=== PATIENT | male | born 1960 | race Caucasian/White ===

== ENCOUNTER 2021-01-06 08:25 | Emergency (ER) | payer OTHER, MEDICAID, SELFPAY ==
[2021-01-06 08:45] VITALS: BP 130/67; PULSE 77; RESP 18; TEMP 36.3; O2SAT 99; BMI 32.5
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
[2021-01-06] MEDS: Baclofen 10 MG TABLET PO (08:57)
[2021-01-06] MEDS: Ibuprofen 600 MG TABLET PO (08:57)
== END 2021-01-06 09:01 | disposition home or self-care (01) ==
LOC: HO.ED 08:54
PROVIDERS: Emergency Provider Emergency Medicine
DX: Z04.1 Encounter for examination and observation following transport accident (principal); M79.18 Myalgia, other site; M54.5 Low back pain
CPT/HCPCS: 99283

== ENCOUNTER 2021-09-30 16:27 | Emergency (ER) | payer MEDICAID, SELFPAY ==
--- NOTE | ~2021-09-30 | XR_ITS ---
EXAMINATION: XR CHEST CLINICAL INFORMATION: Lung COMPARISON: None TECHNIQUE: 2 views of the chest were obtained. FINDINGS: No significant abnormality is noted involving the heart, lungs, mediastinum, bony thorax or soft tissues. The aorta is mildly unfolded and ectatic. XR/XR chest 2V IMPRESSION: No acute intrathoracic disease.
[2021-09-30 17:32] VITALS: BP 115/78; PULSE 69; RESP 20; TEMP 37.1; O2SAT 97; BMI 32.1
--- NOTE | 2021-09-30 18:00 | PC.NURSE ---
PT AMB TO [facility] WITH [facility]. GAIT. NO SOB. LUNGS CLEAR. SKIN PWD. C/O LEFT POSTERIOR RIB AREA PAIN WITH MOVEMENT.
--- NOTE | 2021-09-30 18:03 | ED.GENADULT ---
HPI - General Adult General Chief complaint: General Medical Stated complaint: ?Lung pain Time Seen by Provider: 09/30/21 18:03 History of Present Illness HPI narrative: Patient complains of left-sided mid back pain for 2 months worse with movement, it does not hurt to take a deep breath there is no shortness of breath there is no chest pain there is no sputum no fever Pain occurs when he goes into an uncomfortable position but there is no pain at rest Related Data Previous Rx's Medication Instructions Recorded baclofen 10 mg tablet 10 mg PO TID #14 tab 01/06/21 ibuprofen 600 mg tablet 600 mg PO TID PRN #14 tab 01/06/21 cyclobenzaprine 5 mg tablet 5 mg PO TID PRN #14 tab 09/30/21 ibuprofen 800 mg tablet 800 mg PO TID PRN #20 tab 09/30/21 lidocaine 5 % topical patch 1 patch TOPICAL DAILY #15 ea 09/30/21 Allergies Allergy/AdvReac Type Severity Reaction Status Date / Time No Known Allergies Allergy Verified 09/30/21 18:38 [No Known Allergies*] Review of Systems Review of Systems: Positive for left-sided mid back pain Negatives are no fever no chills no dizziness no weakness no headache no neck pain no chest pain no shortness of breath no abdominal pain no nausea or vomiting no changes to bowel or bladder no dysuria no constipation no frequency no leg swelling no lower leg pain no skin rash Yes all other systems are reviewed and are negative [facility] Past Medical History Source: nursing notes reviewed Medical History Hypothyroid Social History Social History Advance Directives: No Advance Directives Information Provided: No Physical Exam Vital Signs: Vital Signs: Last Vital Signs Temp 98.7 F 09/30/21 17:32 Pulse 69 09/30/21 17:32 Resp 20 09/30/21 17:32 BP 115/78 09/30/21 17:32 Pulse Ox 97 09/30/21 17:32 BMI result Body Mass Index 32.1 General appearance is no acute distress Head is normocephalic atraumatic Neck is supple nontender Chest is clear to auscultation bilateral Heart no murmur Abdomen soft nontender The back head easily reproducible left mid back tenderness, there was no pleuritic pain when he took a deep breath and there was tenderness over the left mid back although the skin was normal without rash, no bony tenderness, no CVA tenderness Extremities full range of motion x4 Neuro no focal motor or sensory deficit Course Course Course Narrative: Patient's left mid back pain is reproduced with movement and likely musculoskeletal, there was no component of shortness of breath chest pain difficulty breathing no pleuritic pain Chest x-ray did not reveal any acute pathology and patient is advised to get a primary care doctor and follow with his doctor for possible physical therapy and further evaluation and he is advised he could return here any time if worse Discharge Plan Discharge Clinical Impression: Back pain Patient Disposition: Home, Self-Care Additional Instructions: Best plan is to get a primary care doctor so you can be referred for physical therapy and possible specialist referral Return any time any worse condition or any concerns your chest x-ray did not show any significant findings but you told me you it had a CT scan and [facility] where something was seen so again get a primary doctor and if you need to have repeat lung imaging they will decide that Prescriptions: New ibuprofen 800 mg tablet 800 mg PO TID PRN (Reason: pain) Qty: 20 RF: 0 lidocaine 5 % adhesive patch,medicated 1 patch topical DAILY Qty: 15 RF: 0 cyclobenzaprine 5 mg tablet 5 mg PO TID PRN (Reason: muscle spasm) Qty: 14 RF: 0 No Action baclofen 10 mg tablet 10 mg PO TID Qty: 14 RF: 0 ibuprofen 600 mg tablet 600 mg PO TID PRN (Reason: pain) Qty: 14 RF: 0 Interventions: ED Discharge Assessment Last Done: 09/30/21 18:42 Discharge Date/Time: 09/30/21 18:43
== END 2021-09-30 18:43 | disposition home or self-care (01) ==
PROVIDERS: Emergency Provider Emergency Medicine Emergency Medical Services
DX: M54.9 Dorsalgia, unspecified (principal)
CPT/HCPCS: 71046; 99283

== ENCOUNTER 2022-11-29 09:42 | Emergency (ER) | payer MEDICAID, SELFPAY ==
[2022-11-29 09:48] VITALS: BP 127/75; PULSE 74; RESP 20; TEMP 36.7; O2SAT 98; BMI 31.3
[2022-11-29 09:59] LABS: MANUAL DIFF FLAG NO
--- NOTE | 2022-11-29 10:04 | ED.GENADULT ---
HPI - General Adult General Chief complaint: General Medical Stated complaint: no medication for a year Time Seen by Provider: 11/29/22 09:45 Source: patient Mode of arrival: ambulatory Limitations: no limitations History of Present Illness HPI narrative: 62 yo male with history of opioid use disorder on Suboxone, hypothyroidism non-compliant with levothyroxine for the last 1 year presents to the ER for levothyroxine refill. He states he has felt unwell lately including extreme fatigue and tiredness. He feels like his joints are swollen in his hands. He does not have a PCP and has been off of his med for 1 year. He has been compliant with his Suboxone. At the clinic they did labs on him about 3 weeks ago and told him he had mild anemia. He denies any chest pain, SOB, dizziness. Denies confusion, hypothermia. complaint: fatigue, med noncompliant Onset (ago): month(s) Radiation: non-radiation Severity: moderate Relieving factors: none Exacerbating factors: none Associated symptoms: malaise Treatments prior to arrival: none Related Data Home Medications Medication Instructions Recorded Confirmed buprenorphine 12 mg-naloxone 3 mg 1 strip sublingual DAILY 11/29/22 11/29/22 sublingual film (Suboxone) Previous Rx's Medication Instructions Recorded levothyroxine 150 mcg tablet 150 mcg PO DAILY #90 tabs 11/29/22 (Synthroid) Allergies Allergy/AdvReac Type Severity Reaction Status Date / Time No Known Allergies Allergy Verified 09/30/21 18:38 [No Known Allergies*] Review of Systems Review of Systems: Yes all other systems are reviewed and are negative [facility] Past Medical History Medical History Hypothyroid Social History Social History Advance Directives: No Advance Directives Information Provided: No Physical Exam ED Vital Signs: Vital Signs - 24 hr 11/29/22 09:48 Temperature 98.0 F Pulse Rate 74 Respiratory Rate 20 Blood Pressure 127/75 Pulse Oximetry 98 Oxygen Delivery Method Room Air BMI result Body Mass Index 31.3 Appearance: Alert. Oriented X3. No acute distress, mild pallor. Eyes: Pupils equal, round and reactive to light. ENT: Pharynx normal. Neck: Normal inspection. Neck supple. CVS: Normal heart rate and rhythm. Pulses normal. Respiratory: No respiratory distress. Breath sounds normal. Abdomen: Soft and nontender. +BS x4 Skin: Skin warm and dry. Normal skin color. Normal skin turgor. No rashes. Extremities: No lower extremity edema. Bilateral hands with mild generalized swelling with swelling of the MCPs throughout. No open wounds. Dry skin Neuro: Oriented X 3. No motor deficit. No sensory deficit. Steady gait Course Course Course Narrative: 62 yo male with history of opioid use disorder on Suboxone, hypothyroidism noncompliant with synthroid x1 year presenting with fatigue. He states he has been nodding out at work. He is normal thermic with a normal heart rate. awake and alert. Nontoxic appearing. Will send basic labs including a TSH with reflex to T4. He is not appear to be in myxedema coma at this time. Reevaluation(s) Reevaluation #1: TSH is 58. Otherwise labs are unremarkable. He remains hemodynamically stable, normothermic and mentating normally. Case d/w Dr. Ro - plan to reinitate him on his previously prescribed Levothyroxine 100 mcg per day. Patient was counseled on the importance of medication compliance and outpatient follow-up. Will refer to endocrinology and PCP. Will give a 3 month supply to give him adequate time to set up outpatient follow-up. Patient is stable for discharge home and return precautions were discussed. Medical Decision Making Differential Diagnosis Differential Diagnoses: The differential diagnosis associated with the presentation includes Myxedema coma, hypothyroidism, anemia, medication noncompliance Admission/Observation Consideration of admission/observation: Escalation of care including admission/observation considered admission for IV Synthroid considered however patient is nontoxic, hemodynamically stable and can be initiated on oral therapy at this time. Lab Data MDM Lab Attestation statement: I reviewed the patient's lab results. 11/29/22 09:56 11/29/22 09:56 Labs: Lab Results 11/29/22 11/29/22 Range/Units 09:56 09:56 WBC 7.0 (4.8-10.8) X10*3/uL RBC 3.94 L (4.60-5.80) X10*6/uL Hgb 12.0 L (14.0-18.0) g/dl Hct 35.3 L (42.0-52.0) % MCV 89.6 (80.0-98.0) fL MCH 30.5 (27.0-33.0) pg MCHC 34.0 (31.0-36.0) g/dl RDW 13.2 (11.0-16.0) % Plt Count 221 (160-400) X10*3/uL MPV 9.2 L (9.4-12.4) fL Immature Gran % (Auto) 0.7 H (0.0-0.4) % Neut % (Auto) 38.2 L (45-73) % Lymph % (Auto) 48.3 H (20-40) % Cross % (Auto) 8.2 (2-11) % Eos % (Auto) 4.0 (0-4) % Baso % (Auto) 0.6 (0-2) % Lymph # (Auto) 3.4 (1.2-4.9) X10*3/uL Cross # (Auto) 0.6 (0.1-1.2) X10*3/uL Eos # (Auto) 0.3 (0.0-0.4) X10*3/uL Baso # (Auto) 0.0 (0.0-0.2) X10*3/uL Abs Immat Gran (auto) 0.05 H (0.00-0.03) X10*3/uL Absolute Neuts (auto) 2.7 (2.0-8.3) x10*3/uL Absolute Nucleated RBC 0.000 (0.0-0.012) X10*3/uL Nucleated RBC % (auto) 0.0 (0.0-0.2) /100WBC Sodium 139 (135-145) mmol/L Potassium 4.3 (3.3-5.1) mmol/L Chloride 103 (96-108) mmol/L Carbon Dioxide 29 (22-29) mmol/L Anion Gap 11 L (12-20) BUN 16 (9-16) mg/dL Creatinine 1.15 (0.5-1.4) mg/dL Estim Creat Clear Calc 52.6 Estimated GFR > 60 Random Glucose 118 H (60-115) mg/dL Calcium 9.7 (8.4-10.2) mg/dL Magnesium 2.2 (1.6-2.6) mg/dL Total Bilirubin 0.7 (0.0-1.0) mg/dL Direct Bilirubin < 0.2 (0.0-0.5) mg/dL AST 38 H (5-37) U/L ALT 21 (0-40) U/L Alkaline Phosphatase 69 (39-117) U/L Total Protein 7.3 (6.5-8.0) g/dL Albumin 4.5 (3.5-5.0) g/dL TSH 58.43 H (0.32-4.0) uIU/mL Prescription Management I considered prescription management with: Other ( Levothyroxine) Chronic Conditions Patient?s care impacted by: Other ( hypothyroidism and opioid use disorder) Critical Care Time Critical Care Time Critical Care Time: No Discharge Plan Discharge Clinical Impression: Hypothyroidism Patient Disposition: Home, Self-Care Instructions: Hypothyroidism (ED) Additional Instructions: Take the prescribed thyroid medication each morning. Take on empty stomach, do not eat for 2 hours after taking. Follow-up with endocrinology and PCP as soon as possible. You will need your thyroid levels rechecked within 4-6 weeks. If you develop new or worsening symptoms call 911 or come back to the ER for further evaluation. Prescriptions: New levothyroxine [Synthroid] 150 mcg tablet 150 mcg PO DAILY Qty: 90 0RF No Action buprenorphine-naloxone [Suboxone] 12-3 mg film 1 strip sublingual DAILY Referrals: [facility] [Provider Group]
[2022-11-29 10:07] LABS: Basophils Percent Auto 0.6 % (0-2); Eosinophils Absolute Auto 0.3 X10*3/uL (0.0-0.4); Hematocrit 35.3 % (42.0-52.0); Imm Gran Abs Auto 0.05 X10*3/uL (0.00-0.03); Imm Gran Pct Auto 0.7 % (0.0-0.4); Lymphocytes Absolute Auto 3.4 X10*3/uL (1.2-4.9); Lymphocytes Percent Auto 48.3 % (20-40); Mean Corpuscular Hemoglobin 30.5 pg (27.0-33.0); Mean Corpuscular Volume 89.6 fL (80.0-98.0); Mean Platelet Volume 9.2 fL (9.4-12.4); Monocytes Absolute Auto 0.6 X10*3/uL (0.1-1.2); Monocytes Percent Auto 8.2 % (2-11); Neutrophils Absolute Auto 2.7 x10*3/uL (2.0-8.3); Neutrophils Percent Auto 38.2 % (45-73); Platelet Count 221 X10*3/uL (160-400); Red Blood Count 3.94 X10*6/uL (4.60-5.80); Red Cell Distribution Width 13.2 % (11.0-16.0)
--- OUTSIDE RECORDS SUMMARY | 2022-11-29 10:10 | XMS_ITS | Continuity of Care Document ---
:1960 Author Organization [facility] Address [address] [place] [id number]- Care Team Providers Name Role Phone Not on Staff, PCP Primary Care Physician Unavailable Encounter [facility] Date(s): 10/01/20 - 10/01/[address] [id number] Discharge Disposition: A-D/C Walkout Attending Physician: Not on Staff, Attending MD Admitting Physician: Not on Staff, Admitting MD Referring Physician: Not on Staff, Referring MD Allergies, Adverse Reactions, Alerts Substance Reaction Severity Status NKA Active Immunizations Given and Recorded Vaccine Date Status Refusal Reason tetanus/diphtheria/pertussis, acel(Tdap) 12/01/18 Given Medications ibuprofen 800 mg oral tablet 800 mg, 1, tablet, By Mouth, 3 times a day, # 15 tablet, Refills 0, Tot. Refills 0, Maintenance, 05/30/17 14:36:12, Print Requisition Start Date: 05/30/17 Stop Date: 06/04/17 Status: Orderedlevothyroxine 0.125 mg oral tablet = 0.125 mcg, By Mouth, Daily, # 30 tablet, 1 Refills, Maintenance, 03/16/16 9:35:37 Start Date: 03/16/16 Status: Orderedlevothyroxine 125 mcg (0.125 mg) oral capsule 1 capsule = 125 mcg, By Mouth, Daily, Take on an empty stomach, # 30 capsule, 0 Refills, Maintenance, 01/19/18 7:31:49 EDT, Capsule Start Date: 01/19/18 Status: Orderedlevothyroxine 125 mcg (0.125 mg) oral capsule 1 capsule = 125 mcg, By Mouth, Daily, # 30 capsule, 0 Refills, Maintenance, 10/05/18 2:13:35 EST, Capsule Start Date: 10/05/18 Status: Orderedlevothyroxine 125 mcg (0.125 mg) oral capsule 1 capsule = 125 mcg, By Mouth, Daily, # 90 capsule, 0 Refills, Maintenance, 04/21/18 20:22:39 EDT, Capsule Start Date: 04/21/18 Status: Orderedlevothyroxine 125 mcg (0.125 mg) oral capsule 1 capsule = 125 mcg, By Mouth, Daily, # 30 capsule, 0 Refills, Maintenance, 09/26/17 8:44:59, Capsule Start Date: 09/26/17 Stop Date: 10/26/17 Status: Orderedlevothyroxine 125 mcg (0.125 mg) oral capsule 1 capsule = 125 mcg, By Mouth, Daily, # 30 capsule, 0 Refills, Maintenance, 11/24/17 10:13:05, Capsule Start Date: 11/24/17 Stop Date: 12/24/17 Status: Orderedlevothyroxine 125 mcg (0.125 mg) oral capsule 1 capsule = 125 mcg, By Mouth, Daily, # 14 capsule, 0 Refills, Maintenance, 03/20/19 2:37:23 EDT, Capsule Start Date: 03/20/19 Stop Date: 04/03/19 Status: Orderedlevothyroxine 125 mcg (0.125 mg) oral tablet 1 tablet = 125 mcg, By Mouth, Daily, # 7 tablet, 0 Refills, Maintenance, 05/17/19 10:44:49 EDT Start Date: 05/17/19 Stop Date: 05/24/19 Status: OrderedSuboxone 8 mg-2 mg sublingual film 2 each, Sublingual, 2 times a day, 0 Refills, Maintenance, 02/08/16 11:21:43 Start Date: 02/08/16 Status: Ordered Vital Signs Most recent to oldest 1 2 3 [Reference Range]: Weight 66.5 kg 66.5 kg 66.5 kg (10/01/20 8:26 AM) (10/01/20 6:38 AM) (10/01/20 6:3 6 AM) Oxygen Saturation [94-100 %] 98 % 100 % (10/01/20 8:26 AM) (10/01/20 6:37 AM) Pulse Rate [55-90 bpm] 65 bpm 72 bpm (12/7/20 8:26 AM) (10/01/20 6:37 AM) Blood Pressure [90-138/55-84 mm 120/63 mm Hg 132/76 mm Hg Hg] (10/01/20 8:26 AM) (10/01/20 6:37 AM) Respiratory Rate [16-30 br/min] 20 br/min 20 br/min (10/01/20 8:26 AM) (10/01/20 6:37 AM) Temperature [96.8-100.4 DegF] 98.7 DegF 99.2 DegF (10/01/20 8:26 AM) (10/01/20 6:37 AM) Mode of Delivery (Oxygen) Room air Room air (10/01/20 8:26 AM) (10/01/20 6:37 AM) Blood pressure sites Arm, left Arm, right (10/01/20 8:26 AM) (10/01/20 6:37 AM) Temperature Route Oral Oral (10/01/20 8:26 AM) (10/01/20 6:37 AM) Dry Weight 66.5 kg 66.5 kg 66.5 kg (10/01/20 8:26 AM) (10/01/20 6:38 AM) (10/01/20 6:3 6 AM)
--- OUTSIDE RECORDS SUMMARY | 2022-11-29 10:10 | XMS_ITS | Continuity of Care Document ---
:1960 Author Organization [facility] Address [address] [place] [id number]- Care Team Providers Name Role Phone Not on Staff, PCP Primary Care Physician Unavailable [place] [facility] [place] - 12/09/[address] [address]- [facility] Encounter Diagnosis Bilateral nephrolithiasis (Final) - 12/09/19 Discharge Disposition: A-D/C Home Attending Physician: Leonid Mitchell MD Admitting Physician: Leonid Mitchell MD Referring Physician: Not on Staff, Referring MD Allergies, Adverse Reactions, Alerts Substance Reaction Severity Status NKA Active Immunizations Given and Recorded Vaccine Date Status Refusal Reason tetanus/diphtheria/pertussis, acel(Tdap) 12/01/18 Given Medications ibuprofen 600 mg oral tablet 600 mg, 1, tablet, By Mouth, 4 times a day, for 3 days, # 30 tablet, Refills 0, Tot. Refills 0, Acute 12/12/19 13:38:00 EST, 12/09/19 13:38:00 EST, Route to Pharmacy Electronically, [id number], 148, cm, 12/01/18 9:47:00 EST, Height, 7... Start Date: 12/09/19 Stop Date: 12/12/19 Status: Orderedibuprofen 800 mg oral tablet 800 mg, 1, [...] 10:44:49 EDT Start Date: 05/17/19 Stop Date: 7/30/19 Status: OrderedSuboxone 8 mg-2 mg sublingual film 2 each, Sublingual, 2 times a day, 0 Refills, Maintenance, 02/08/16 11:21:43 Start Date: 02/08/16 Status: Ordered Vital Signs Most recent to oldest 1 2 3 [Reference Range]: Oxygen Saturation [94-100 %] 100 % 99 % 96 % (12/09/19 2:09 PM) (12/09/19 11:02 AM) (12/09/19 10 :11 AM) Pulse Rate [55-90 bpm] 78 bpm 56 bpm 50 bpm (12/09/19 2:09 PM) (12/09/19 11:02 AM) *L* (12/09/19 10:11 A M) Blood Pressure [90-138/55-84 127/78 mm Hg 106/76 mm Hg 112 /73 mm Hg mm Hg] (12/09/19 2:09 PM) (12/09/19 11:02 AM) (12/09/19 10 :11 AM) Respiratory Rate [16-30 20 br/min 20 br/min 16 br/mi n br/min] (12/09/19 2:09 PM) (12/09/19 12:53 PM) (12/09/19 11 :08 AM) Temperature [96.8-100.4 98.4 DegF 98.4 DegF 99.0 Deg F DegF] (12/09/19 11:02 AM) (12/09/19 10:11 AM) (12/09/19 8 :05 AM) Mode of Delivery (Oxygen) Room air Room air Room a ir (12/09/19 2:09 PM) (12/09/19 11:02 AM) (12/09/19 10 :11 AM) Blood pressure sites Arm, left Arm, right Arm, right (12/09/19 2:09 PM) (12/09/19 11:02 AM) (12/09/19 10 :11 AM) Temperature Route Oral Oral Oral (12/09/19 11:02 AM) (12/09/19 10:11 AM) (12/09/19 8 :05 AM)
--- OUTSIDE RECORDS SUMMARY | 2022-11-29 10:10 | XMS_ITS | Continuity of Care Document ---
:1960 Author Organization [facility] Address [address] [place] [id number]- Care Team Providers Name Role Phone Not on Staff, PCP Primary Care Physician Unavailable [place] [facility] [place] 04/27/[address] [address] [facility] Discharge Disposition: A-D/C Walkout Attending Physician: Not [...] Ordered Vital Signs Most recent to oldest [Reference Range]: 1 2 Oxygen Saturation [94-100 %] 98 % 99 % (04/27/20 2:21 AM) (04/26/20 9:09 PM) Pulse Rate [55-90 bpm] 68 bpm 83 bpm (04/27/20 2:21 AM) (04/26/20 9:09 PM) Blood Pressure [90-138/55-84 mm Hg] 121/89 mm Hg 115/ 81 mm Hg (04/27/20 2:21 AM) (04/26/20 9:09 PM) Respiratory Rate [16-30 br/min] 20 br/min 16 br/mi n (04/27/20 2:21 AM) (04/26/20 9:09 PM) Temperature [96.8-100.4 DegF] 97.8 DegF 98.3 DegF (04/27/20 2: AM) (04/26/20 9:09 PM) Mode of Delivery (Oxygen) Room air Room air (04/27/20 2:21 AM) (04/26/20 9:09 PM) Blood pressure sites Arm, right Arm, right (04/27/20 2:21 AM) (04/26/20 9:09 PM) Temperature Route Oral Oral (04/27/20 2:21 AM) (04/26/20 9:09 PM)
[2022-11-29 11:04] LABS: TSH reflex Free T4 58.43 uIU/mL (0.32-4.0)
[2022-11-29 11:10] LABS: Alanine Aminotransferase 21 U/L (0-40); Albumin Level 4.5 g/dL (3.5-5.0); Alkaline Phosphatase 69 U/L (39-117); Anion Gap 11 (12-20); Aspartate Amino Transferase 38 U/L (5-37); Bilirubin Direct < 0.2 mg/dL (0.0-0.5); Bilirubin Total 0.7 mg/dL (0.0-1.0); Blood Urea Nitrogen 16 mg/dL (9-16); Calcium 9.7 mg/dL (8.4-10.2); Carbon Dioxide 29 mmol/L (22-29); Chloride 103 mmol/L (96-108); Creatinine Clr Calc Pharmacy 52.6; Estimated Glomerular Filt Rate > 60; Glucose Random 118 mg/dL (60-115); Magnesium 2.2 mg/dL (1.6-2.6); Potassium 4.3 mmol/L (3.3-5.1); Sodium 139 mmol/L (135-145); Total Protein 7.3 g/dL (6.5-8.0)
[2022-11-29 11:35] LABS: Free T4 (Free Thyroxine) 0.42 ng/dL (0.71-1.85)
== END 2022-11-29 11:27 | disposition home or self-care (01) ==
PROVIDERS: Physician Assistant; Emergency Provider Emergency Medicine
DX: E03.9 Hypothyroidism, unspecified (principal); Z91.14 Patient's other noncompliance with medication regimen; R53.83 Other fatigue; F11.20 Opioid dependence, uncomplicated
CPT/HCPCS: 36415; 80048; 80076; 83735; 84439; 84443; 85025; 99282; 99283

== ENCOUNTER 2023-09-02 09:35 | Emergency (ER) | payer MEDICAID, SELFPAY ==
[2023-09-02 09:43] VITALS: BP 141/80; PULSE 67; RESP 18; TEMP 36.4; O2SAT 98; BMI 29.7
--- NOTE | 2023-09-02 13:20 | ED_ITS ---
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 The patient reports that symptoms progressively getting worse over the past few weeks, he also reports that he ran out of his levothyroxine few months ago and has never filled the prescription because he thought he did not need it. The patient reports 2 days of constipation but denies abdominal pain and vomiting. He reports that he is still passing wind. Patient denies chest pain, reports that he had a sore throat for the past 2 weeks but no fever and chills. Denies headache, unilateral weakness, blurry vision, slurred speech. Patient usually takes 150 mcg of levothyroxine. Related Data Home Medications Medication Instructions Recorded Confirmed buprenorphine 12 mg-naloxone 3 mg 1 strip sublingual DAILY 11/29/22 11/29/22 sublingual film (Suboxone) Previous Rx's Medication Instructions Recorded levothyroxine 150 mcg tablet 150 mcg PO DAILY #90 tabs 11/29/22 (Synthroid) Allergies Allergy/AdvReac Type Severity Reaction Status Date / Time No Known Allergies Allergy Verified 09/02/23 10:56 [No Known Allergies*] Review of Systems Review of Systems: Yes all other systems are reviewed and are negative [facility] Past Medical History Medical History Hypothyroid Social History Social History Smoked in Last 30 Days: No Use of substances other than those prescribed or required for medical reasons: No Advance Directives: No Advance Directives Information Provided: No Physical Exam ED Vital Signs: Vital Signs - 24 hr 09/02/23 09:43 09/02/23 14:06 Temperature 97.6 F 98.1 F Pulse Rate 67 65 Respiratory Rate 18 16 Blood Pressure 141/80 H 163/99 H Pulse Oximetry 98 96 Oxygen Delivery Method Room Air Room Air BMI result Body Mass Index 29.7 Const Other: General: Alert, Not in Distress Skin: No rash, warm HEENT: Atraumatic, No Exudate or Pharyngeal Erythema Resp: Normal Breath sounds bilaterally Cardio: Regular rate and Rhythm, Normal S1, S2 ABD: Abd soft, non tender, no guarding or rebound. Normal Bowel sounds. : No cva tenderness Neuro: Alert, oriented x4, PERRL Strenght 5/5 on all extremities Sensation is preserved in both lower and upper extremities Index to nose: normal Cranial Nerves II-XII grossly intact No dysarthria, or aphasia No neglet. Visual perez are normal bilaterally Psych: Cooperative, NO SI Course Reevaluation(s) Reevaluation #1: Patient eloped Time: 15:21 Medications Administered Discontinued Medications Generic Name Dose Route Start Last Admin Trade Name Amando PRN Reason Stop Dose Admin Acetaminophen 975 mg 09/02/23 13:29 09/02/23 13:52 Acetaminophen 325 Mg Tablet PO 09/02/23 13:30 975 mg ONCE ONE Administration Lidocaine 1 patch 09/02/23 13:29 09/02/23 13:53 Lidocaine 4 % Patch Adh..Patch TRANSDERMA 09/02/23 13:30 1 patch ONCE ONE Administration Protocol Medical Decision Making Medical Decision Making [facility] Narrative: Patient presents to the emergency room for generalized weakness and requesting refill of this levothyroxine 150 mcg which he has not used for the past 2 months. Patient physical exam is otherwise unremarkable. He is complaining of some neck pain for the past few months likely secondary to overuse at work. Impression: Hypothyroidism, electrolyte imbalance, FANY, URI Plan : CBC, BMP, TSH, analgesia, ekg at this time I do not think imaging will global director air and climate change of this patient therefore will hold. Differential Diagnosis Differential Diagnoses: The differential diagnosis associated with the presentation includes Admission/Observation Consideration of admission/observation: Escalation of care including admission/observation considered Lab Data [facility] Lab Attestation statement: I reviewed the patient's lab results. Independent Interpretation I performed an independent interpretation of an: EKG (Normal Sinus Rhythm) Discharge Plan Discharge Clinical Impression: Weakness Patient Disposition: Elopement Prescriptions: No Action buprenorphine-naloxone [Suboxone] 12-3 mg film 1 strip sublingual DAILY levothyroxine [Synthroid] 150 mcg tablet 150 mcg PO DAILY Qty: 90 0RF
--- NOTE | 2023-09-02 13:29 | ECG_ITS ---
Test Reason : weakness Blood Pressure : / mmHG Vent. Rate : 052 BPM Atrial Rate : 052 BPM P-R Int : 174 ms QRS Dur : 090 ms QT Int : 454 ms P-R-T Axes : 051 -08 046 degrees QTc Int : 422 ms Sinus bradycardia Low voltage QRS RSR' or QR pattern in V1 suggests right ventricular conduction delay Borderline ECG When compared with ECG of 03-JUN-2002 15:16, No significant change was found Referred By: Tunde Dhaliwal Electronically Signed By:BECKY MONTGOMERY MD
[2023-09-02] MEDS: Acetaminophen 325 MG TABLET 975 MG PO (13:52)
[2023-09-02] MEDS: Lidocaine 4 % Patch ADH..PATCH 1 PATCH TRANSDERMA (13:53)
[2023-09-02 14:06] VITALS: BP 163/99; PULSE 65; RESP 16; TEMP 36.7; O2SAT 96
== END 2023-09-02 21:50 | disposition left against medical advice (07) ==
PROVIDERS: Emergency Provider Student in an Organized Health Care Education/Training Program
DX: R53.83 Other fatigue (principal); R00.1 Bradycardia, unspecified; K59.00 Constipation, unspecified
CPT/HCPCS: 93005; 99283; 99284

== ENCOUNTER 2023-10-19 00:34 | Emergency (ER) | payer MEDICAID, SELFPAY ==
--- NOTE | 2023-10-19 | ECG_ITS ---
Test Reason : PERICARDITIS Blood Pressure : / mmHG Vent. Rate : 082 BPM Atrial Rate : 082 BPM P-R Int : 174 ms QRS Dur : 088 ms QT Int : 384 ms P-R-T Axes : 045 -18 039 degrees QTc Int : 448 ms Normal sinus rhythm Normal ECG When compared with ECG of 02-SEP-2023 13:44, Vent. rate has increased BY 30 BPM Referred By: Generic ED Physician Electronically Signed By:DOC TREADWELL MD
[2023-10-19 00:35] VITALS: BP 128/83; PULSE 83; RESP 18; TEMP 36.6; O2SAT 96; BMI 29.7
[2023-10-19 00:55] LABS: Basophils Percent Auto 0.3 % (0-2); Eosinophils Absolute Auto 0.3 X10*3/uL (0.0-0.4); Eosinophils Percent Auto 4.8 % (0-4); Hematocrit 36.3 % (42.0-52.0); Hemoglobin 12.4 g/dl (14.0-18.0); Imm Gran Abs Auto 0.04 X10*3/uL (0.00-0.03); Imm Gran Pct Auto 0.7 % (0.0-0.4); Lymphocytes Absolute Auto 2.7 X10*3/uL (1.2-4.9); Lymphocytes Percent Auto 47.2 % (20-40); MANUAL DIFF FLAG NO; Mean Corpuscular HGB Conc 34.2 g/dl (31.0-36.0); Mean Corpuscular Hemoglobin 29.9 pg (27.0-33.0); Mean Corpuscular Volume 87.5 fL (80.0-98.0); Mean Platelet Volume 9.1 fL (9.4-12.4); Monocytes Absolute Auto 0.4 X10*3/uL (0.1-1.2); Monocytes Percent Auto 6.4 % (2-11); Neutrophils Absolute Auto 2.4 x10*3/uL (2.0-8.3); Neutrophils Percent Auto 40.6 % (45-73); Platelet Count 198 X10*3/uL (160-400); Red Blood Count 4.15 X10*6/uL (4.60-5.80); Red Cell Distribution Width 13.5 % (11.0-16.0); White Blood Count 5.8 X10*3/uL (4.8-10.8)
[2023-10-19 01:19] LABS: Alanine Aminotransferase 53 U/L (0-40); Albumin Level 4.8 g/dL (3.5-5.0); Alkaline Phosphatase 60 U/L (39-117); Anion Gap 13 (12-20); Aspartate Amino Transferase 68 U/L (5-37); Bilirubin Total 0.5 mg/dL (0.0-1.0); Blood Urea Nitrogen 14 mg/dL (9-16); Calcium 9.6 mg/dL (8.4-10.2); Carbon Dioxide 28 mmol/L (22-29); Chloride 104 mmol/L (96-108); Creatinine Clr Calc Pharmacy 46.1; Estimated Glomerular Filt Rate 58; Glucose Random 118 mg/dL (60-115); Potassium 4.1 mmol/L (3.3-5.1); Sodium 141 mmol/L (135-145); Total Protein 8.1 g/dL (6.5-8.0)
--- NOTE | 2023-10-19 01:32 | ED_ITS ---
HPI - General Adult General Chief complaint: General Medical Stated complaint: gen med Time Seen by Provider: 10/19/23 01:28 Source: patient Mode of arrival: ambulatory Limitations: no limitations History of Present Illness HPI narrative: This is a 62-year-old male with history of opioid use disorder on Suboxone, hypothyroidism non compliant with levothyroxine patient had multiple ED visit for refilling his medication came in today asking for refill of his levothyroxine patient has no symptoms except feeling fatigue which is typical when he does not take his thyroid medication. Related Data Home Medications Medication Instructions Recorded Confirmed buprenorphine 12 mg-naloxone 3 mg 1 strip sublingual DAILY 11/29/22 11/29/22 sublingual film (Suboxone) Previous Rx's Medication Instructions Recorded levothyroxine 150 mcg tablet 150 mcg PO DAILY #90 tabs 11/29/22 (Synthroid) levothyroxine 125 mcg capsule 125 mcg PO DAILY #20 caps 10/19/23 Allergies Allergy/AdvReac Type Severity Reaction Status Date / Time No Known Allergies Allergy Verified 10/19/23 00:39 [No Known Allergies*] Review of Systems 2 Review of Systems: All other systems are reviewed and are negative Constitutional: Reports as per HPI and Reports no additional constitutional complaints Eyes: Reports as per HPI and Reports no additional eye complaints Reports system reviewed and no additional complaints, except as documented Cardiovascular: Reports as per HPI and Reports no additional cardiovascular complaints Respiratory: Reports as per HPI and Reports no additional respiratory complaints Gastrointestinal: Reports as per HPI and Reports no additional gastrointestinal complaints Genitourinary: Reports no additional female genitourinary complaints Musculoskeletal: Reports no additional musculoskeletal complaints Skin/Breast: Reports system reviewed and no additional complaints, except as docu Psychiatric: Reports no additional psychiatric complaints Endocrine: Reports no additional endocrine complaints Hematologic/Lymphatic: Reports no additional hematologic/lymphatic complaints Allergic/Immunologic: Reports no additional allergic/immunologic complaints Reports system reviewed and no additional complaints, except as documented and Reports Abnormal speech present [facility] Past Medical History Medical History Hypothyroid Social History Social History Advance Directives: No Advance Directives Information Provided: No Physical Exam ED Vital Signs: Vital Signs - 24 hr 10/19/23 00:35 Temperature 97.8 F Pulse Rate 83 Respiratory Rate 18 Blood Pressure 128/83 Pulse Oximetry 96 Oxygen Delivery Method Room Air BMI result Body Mass Index 29.7 Vital signs have been reviewed and appear to be correct. Blood pressure elevated. Heart rate normal. Respiratory rate normal. Temperature normal. Oxygen saturation normal. Appearance: Alert. Oriented X3. No acute distress. Head: Normal external exam. Normocephalic. Atraumatic. No Alberto signs noted. No raccoon eyes noted Eyes: PERRLA. EOMI. Conjunctiva and sclera normal. Eyelids normal. ENT: TM's Normal. Pharynx normal. Uvula midline. Moist mucous membranes. No trismus noted. No drooling noted. No muffled voice noted. Neck: Normal inspection. Neck supple. FROM. No adenopathy. Thyroid Normal. No meningeal signs. No neck mass noted. CVS: Normal heart rate and rhythm. Heart sound normal. No murmurs noted. Pulses normal throughout. Respiratory: No respiratory distress. Painless inspiration. Breath sounds normal. No wheezes/rales/rhonchi noted. Chest nontender. No accessory muscle usage noted or decreased air movement noted. Abdomen: Soft and nontender. Bowel sounds normal in all 4 quadrants. No distention noted. No organomegaly noted. No visible injury noted. Back: No CVA tenderness. Full range of motion noted. Skin: Skin warm and dry. Normal skin color. Normal skin turgor. No rashes/lesions/lacerations noted. Extremities: No lower extremity edema. Extremities exhibit normal range of motion. Extremities nontender. Neuro: Oriented X 3. Cranial nerve exam: II-XII are grossly intact No motor deficit. No sensory deficit. Reflexes normal. Course Reevaluation(s) Reevaluation #1: Patient was instructed to follow-up with PCP. Will prescribe levothyroxine supply for 1 month until sees his PCP. Time: 01:34 Medical Decision Making Differential Diagnosis Differential Diagnoses: The differential diagnosis associated with the presentation includes (Anemia, electrolyte abnormality, hypothyroidism.) Admission/Observation Consideration of admission/observation: Escalation of care including admission/observation considered Lab Data [facility] Lab Attestation statement: I reviewed the patient's lab results. 10/19/23 00:50 10/19/23 00:50 Labs: Lab Results 10/19/23 Range/Units 00:50 WBC 5.8 (4.8-10.8) X10*3/uL RBC 4.15 L (4.60-5.80) X10*6/uL Hgb 12.4 L (14.0-18.0) g/dl Hct 36.3 L (42.0-52.0) % MCV 87.5 (80.0-98.0) fL MCH 29.9 (27.0-33.0) pg MCHC 34.2 (31.0-36.0) g/dl RDW 13.5 (11.0-16.0) % Plt Count 198 (160-400) X10*3/uL MPV 9.1 L (9.4-12.4) fL Immature Gran % (Auto) 0.7 H (0.0-0.4) % Neut % (Auto) 40.6 L (45-73) % Lymph % (Auto) 47.2 H (20-40) % [place] % (Auto) 6.4 (2-11) % Eos % (Auto) 4.8 H (0-4) % Baso % (Auto) 0.3 (0-2) % Lymph # (Auto) 2.7 (1.2-4.9) X10*3/uL [place] # (Auto) 0.4 (0.1-1.2) X10*3/uL Eos # (Auto) 0.3 (0.0-0.4) X10*3/uL Baso # (Auto) 0.0 (0.0-0.2) X10*3/uL Abs Immat Gran (auto) 0.04 H (0.00-0.03) X10*3/uL Absolute Neuts (auto) 2.4 (2.0-8.3) x10*3/uL Absolute Nucleated RBC 0.000 (0.0-0.012) X10*3/uL Nucleated RBC % (auto) 0.0 (0.0-0.2) /100WBC Sodium 141 (135-145) mmol/L Potassium 4.1 (3.3-5.1) mmol/L Chloride 104 (96-108) mmol/L Carbon Dioxide 28 (22-29) mmol/L Anion Gap 13 (12-20) BUN 14 (9-16) mg/dL Creatinine 1.26 (0.5-1.4) mg/dL Estim Creat Clear Calc 46.1 Estimated GFR 58 Random Glucose 118 H (60-115) mg/dL Calcium 9.6 (8.4-10.2) mg/dL Total Bilirubin 0.5 (0.0-1.0) mg/dL AST 68 H (5-37) U/L ALT 53 H (0-40) U/L Alkaline Phosphatase 60 (39-117) U/L Total Protein 8.1 H (6.5-8.0) g/dL Albumin 4.8 (3.5-5.0) g/dL Discharge Plan Discharge Clinical Impression: Hypothyroid Patient Disposition: Home, Self-Care Instructions: Hypothyroidism (ED) Additional Instructions: It is very important to make an appointment and follow-up with your PCP in order to manage your hypothyroidism. Prescriptions: New levothyroxine 125 mcg capsule 125 mcg PO DAILY Qty: 20 0RF No Action buprenorphine-naloxone [Suboxone] 12-3 mg film 1 strip sublingual DAILY levothyroxine [Synthroid] 150 mcg tablet 150 mcg PO DAILY Qty: 90 0RF
[2023-10-19] MEDS: Levothyroxine Sodium 125 MCG TABLET PO (01:52)
--- NOTE | 2023-10-19 01:54 | PC.NURSE ---
pt a+o x 4 pt medicated according to mar disposition pending
[2023-10-19 02:12] LABS: Free T4 (Free Thyroxine) < 0.42 ng/dL (0.71-1.85)
== END 2023-10-19 02:16 | disposition home or self-care (01) ==
PROVIDERS: Emergency Provider Emergency Medicine
DX: Z76.0 Encounter for issue of repeat prescription (principal); E03.9 Hypothyroidism, unspecified; Z91.148 Patient's other noncompliance with medication regimen for other reason
CPT/HCPCS: 36415; 80053; 84439; 84443; 85025; 93005; 99283; 99284

== ENCOUNTER → 2023-10-19 00:45 | Outpatient (BNV) | payer MEDICAID, SELFPAY | PROVIDERS: Emergency Provider Emergency Medicine; Visit Provider Internal Medicine Cardiovascular Disease | DX: I30.9 Acute pericarditis, unspecified (principal) | CPT/HCPCS: 93010 ==

== ENCOUNTER 2024-01-14 14:07 | Emergency (ER) | payer MEDICAID, SELFPAY ==
[2024-01-14 14:42] VITALS: BP 130/63; PULSE 75; RESP 16; TEMP 36.6; O2SAT 95; BMI 35.2
--- NOTE | 2024-01-14 14:42 | ED_ITS ---
HPI - General Adult General Chief complaint: Eye Problems Stated complaint: r eye red Source: patient Mode of arrival: ambulatory Limitations: no limitations History of Present Illness HPI narrative: 63-year-old male presents with multiple complaints, atraumatic redness to right eye for the past 2 days. No pain associated with this, foreign body sensation or trauma. Patient reports some discharge from the right eye that is clear and at times crusty. Worse in the morning. Also reporting he tried OTC drops with little to no relief. Also like a refill on his levothyroxine 125 mcg p.o. daily ran out. Will reach out to his PCP for follow-up afterwards. Also reporting his left gum is sore, he reports he has no teeth and he has some redness to the left lower gum. No difficulty swallowing, fevers, chills, numbness, tingling, headache, vision changes, dizziness weakness, nausea, vomiting abdominal pain Related Data Home Medications Medication Instructions Recorded Confirmed buprenorphine 12 mg-naloxone 3 mg 1 strip sublingual DAILY 11/29/22 11/29/22 sublingual film (Suboxone) Previous Rx's Medication Instructions Recorded levothyroxine 150 mcg tablet 150 mcg PO DAILY #90 tabs 11/29/22 (Synthroid) levothyroxine 125 mcg capsule 125 mcg PO DAILY #20 caps 10/19/23 amoxicillin 875 mg-potassium 1 tab PO BID 7 days #14 tabs 01/14/24 clavulanate 125 mg tablet erythromycin 5 mg/gram (0.5 %) eye 1 appl ophthalmic (eye) TID 5 days 01/14/24 ointment #3.5 grams levothyroxine 125 mcg capsule 125 mcg PO DAILY #30 caps 01/14/24 Allergies Allergy/AdvReac Type Severity Reaction Status Date / Time No Known Allergies Allergy Verified 01/14/24 14:41 [No Known Allergies*] Review of Systems Review of Systems: Yes all other systems are reviewed and are negative PMF[facility] Past Medical History Attestation statement: The following information was validated with the patient. Source: old records reviewed and nursing notes reviewed Medical History Hypothyroid Social History Social History Substance Use Type: Opiates Physical Exam ED Vital Signs: vss Appearance: Alert.? Oriented X3.? No acute distress.? Head: Normocephalic, atraumatic, no step-offs or deformities Eyes: Pupils equal, round and reactive to light.? EOMI pain free. conjunctivitis bilaterally worse on the right, small subconjunctival hemorrhage on the right. ENT: Pharynx normal.?+ redness to LL gum region no abscess but a growth is noted. Poor dentition and halatosis.Speaking in full sentences controlling secretions well. Neck: Normal inspection.? Neck supple.? CVS:? Pulses normal.? Respiratory: No respiratory distress.? Skin: Skin warm and dry.? Normal skin color.? Normal skin turgor.? Extremities: 5/5 strength to bilateral upper and lower extremities Neuro: Oriented X 3.? No motor deficit.? No sensory deficit Medical Decision Making Medical Decision Making [facility] Narrative: 63 yo m presents w/ R eye redness X 2 days not improving despite OTC drops. No headache or vision changes. Requesting refil for levothyroxine. PE w/ conjunctivitis bilaterally worse on the right, small subconjunctival hemorrhage on the right. Extraocular movements intact and pain-free. No erythema around right orbit. History and physical exam concerning for conjunctivitis versus subconjunctival hemorrhage. Unlikely corneal ulcer, wet macular degeneration, acute closed angle glaucoma, foreign body. Plan at this time dispo from triage will send with erythromycin. Differential Diagnosis Differential Diagnoses: The differential diagnosis associated with the presentation includes History and physical exam concerning for conjunctivitis versus subconjunctival hemorrhage. Unlikely corneal ulcer, wet macular degeneration, acute closed angle glaucoma, foreign body. Admission/Observation Consideration of admission/observation: Escalation of care including admission/observation considered unlikley Tests considered The following testing was considered but not selected: No pain w/ eom NO NEED FOR CT Prescription Management I considered prescription management with: Antibiotic (erythromycin ointment ) Critical Care Time Critical Care Time Critical Care Time: No Discharge Plan Discharge Clinical Impression: Conjunctivitis, Medication refill, Pain in gums, Overgrowth of gums, Subconjunctival hemorrhage Patient Disposition: Home, Self-Care Instructions: Conjunctivitis (ED) Additional Instructions: Take your medications as prescribed. If you were prescribed antibiotics today, it is important that you take your medication to their entirety, do not skip any doses, do not finish them early. Follow-up with your primary care provider this week. Follow up with dentist as soon as possible Return to the emergency department with new or worsening symptoms. Such as fevers, chills, chest pain, shortness of breath, nausea, vomiting, dizziness, headache, vision changes, lethargy In case of emergency call 911 Prescriptions: New erythromycin 5 mg/gram (0.5 %) ointment 1 appl ophthalmic (eye) TID 5 Days Qty: 3.5 0RF levothyroxine 125 mcg capsule 125 mcg PO DAILY Qty: 30 0RF amoxicillin-pot clavulanate 875-125 mg tablet 1 tab PO BID 7 Days Qty: 14 0RF No Action buprenorphine-naloxone [Suboxone] 12-3 mg film 1 strip sublingual DAILY levothyroxine [Synthroid] 150 mcg tablet 150 mcg PO DAILY Qty: 90 0RF levothyroxine 125 mcg capsule 125 mcg PO DAILY Qty: 20 0RF Referrals: Physician,None [Primary Care Provider] - 2 days Stand Alone Forms: Work/School Release
[2024-01-14 15:09] VITALS: BP 127/70; PULSE 75; RESP 17; TEMP 37.1; O2SAT 96
== END 2024-01-14 15:09 | disposition home or self-care (01) ==
PROVIDERS: Emergency Provider Emergency Medicine
DX: H11.31 Conjunctival hemorrhage, right eye (principal); H10.9 Unspecified conjunctivitis; K13.79 Other lesions of oral mucosa; Z76.0 Encounter for issue of repeat prescription
CPT/HCPCS: 99282; 99283

== ENCOUNTER 2024-02-24 12:34 | Emergency (ER) | payer MEDICAID, SELFPAY ==
--- NOTE | ~2024-02-24 | XR_ITS ---
EXAMINATION: XR CHEST CLINICAL INFORMATION: Chest pain. COMPARISON: Chest radiograph dated 09/30/2021. TECHNIQUE: 2 views of the chest were obtained. FINDINGS: The lungs are clear. The cardiomediastinal silhouette is normal in size. There is no pleural effusion or pneumothorax. No acute osseous abnormality. XR/XR chest 2V IMPRESSION: No acute cardiopulmonary findings.
--- NOTE | 2024-02-24 12:36 | ECG_ITS ---
Test Reason : chest pain Blood Pressure : / mmHG Vent. Rate : 058 BPM Atrial Rate : 058 BPM P-R Int : 164 ms QRS Dur : 088 ms QT Int : 420 ms P-R-T Axes : 057 020 029 degrees QTc Int : 412 ms Sinus bradycardia Otherwise normal ECG When compared with ECG of 19-OCT-2023 00:45, No significant change was found Referred By: Generic ED Physician Electronically Signed By:SAIMA PATINO
[2024-02-24 13:28] VITALS: BP 145/82; PULSE 62; RESP 16; TEMP 36.1; O2SAT 98; BMI 51.7
--- NOTE | 2024-02-24 13:28 | ED_ITS ---
HPI - General Adult General Chief complaint: Chest Pain Stated complaint: Chest pain Time Seen by Provider: 02/24/24 17:28 Source: patient Mode of arrival: ambulatory Limitations: no limitations History of Present Illness HPI narrative: a 64-year-old male with a remote history of pericardial effusion in 2001, patient otherwise nonsmoker since age of 31, no history of diabetes or high blood pressure, no known family history of coronary artery disease. Patient came in for evaluation exertional chest pain for few weeks but progressively getting worse, describes the pain as a burning sensation in the epigastric area, the pain make the patient stop the exertion then resume after the pain resolves, no SOB, no PND, no lower extremity Swelling or edema. No recent travel, no prolonged immobilization, no lower extremity swelling or tenderness or edema. Related Data Home Medications ?Medication ?Instructions ?Recorded ?Confirmed buprenorphine 12 mg-naloxone 3 mg 1 strip sublingual DAILY 11/29/22 11/29/22 sublingual film (Suboxone) Previous Rx's ?Medication ?Instructions ?Recorded levothyroxine 150 mcg tablet 150 mcg PO DAILY #90 tabs 11/29/22 (Synthroid) levothyroxine 125 mcg capsule 125 mcg PO DAILY #20 caps 10/19/23 amoxicillin 875 mg-potassium 1 tab PO BID 7 days #14 tabs 01/14/24 clavulanate 125 mg tablet erythromycin 5 mg/gram (0.5 %) eye 1 appl ophthalmic (eye) TID 5 days 01/14/24 ointment #3.5 grams levothyroxine 125 mcg capsule 125 mcg PO DAILY #30 caps 01/14/24 Allergies Allergy/AdvReac Type Severity Reaction Status Date / Time No Known Allergies Allergy Verified 02/24/24 13:30 [No Known Allergies*] Review of Systems 2 Review of Systems: All other systems are reviewed and are negative Constitutional: Reports as per HPI and Reports no additional constitutional complaints Eyes: Reports as per HPI and Reports no additional eye complaints Reports system reviewed and no additional complaints, except as documented Cardiovascular: Reports as per HPI and Reports no additional cardiovascular complaints Respiratory: Reports as per HPI and Reports no additional respiratory complaints Gastrointestinal: Reports as per HPI and Reports no additional gastrointestinal complaints Genitourinary: Reports no additional female genitourinary complaints Musculoskeletal: Reports no additional musculoskeletal complaints Skin/Breast: Reports system reviewed and no additional complaints, except as docu Psychiatric: Reports no additional psychiatric complaints Endocrine: Reports no additional endocrine complaints Hematologic/Lymphatic: Reports no additional hematologic/lymphatic complaints Allergic/Immunologic: Reports no additional allergic/immunologic complaints Reports system reviewed and no additional complaints, except as documented and Reports Abnormal speech present [facility] Past Medical History Medical History Hypothyroid Social History Social History Smoked in Last 30 Days: No Use of substances other than those prescribed or required for medical reasons: No Substance Use Type: Opiates Advance Directives: No Advance Directives Information Provided: No Physical Exam ED Vital Signs: Vital Signs - 24 hr 02/24/24 13:28 02/24/24 17:34 Temperature 96.9 F Pulse Rate 62 Pulse Rate [Monitor] 55 Respiratory Rate 16 Blood Pressure 145/82 H Pulse Oximetry 98 Oxygen Delivery Method Room Air BMI result Body Mass Index 51.7 Vital signs have been reviewed and appear to be correct. Blood pressure elevated. Heart rate normal. Respiratory rate normal. Temperature normal. Oxygen saturation normal. Appearance: Alert. Oriented X3. No acute distress. Head: Normal external exam. Normocephalic. Atraumatic. No Alberto signs noted. No raccoon eyes noted Eyes: PERRLA. EOMI. Conjunctiva and sclera normal. Eyelids normal. ENT: TM's Normal. Pharynx normal. Uvula midline. Moist mucous membranes. No trismus noted. No drooling noted. No muffled voice noted. Neck: Normal inspection. Neck supple. FROM. No adenopathy. Thyroid Normal. No meningeal signs. No neck mass noted. CVS: Normal heart rate and rhythm. Heart sound normal. No murmurs noted. Pulses normal throughout. Respiratory: No respiratory distress. Painless inspiration. Breath sounds normal. No wheezes/rales/rhonchi noted. Chest nontender. No accessory muscle usage noted or decreased air movement noted. Abdomen: Soft and nontender. Bowel sounds normal in all 4 quadrants. No distention noted. No organomegaly noted. No visible injury noted. Back: No CVA tenderness. Full range of motion noted. Skin: Skin warm and dry. Normal skin color. Normal skin turgor. No rashes/lesions/lacerations noted. Extremities: No lower extremity edema. Extremities exhibit normal range of motion. Extremities nontender. Neuro: Oriented X 3. Cranial nerve exam: II-XII are grossly intact No motor deficit. No sensory deficit. Reflexes normal. Course Course Course Narrative: RME- 64 year old male presents for evaluation of burning chest pain with walking. His symptoms started a few days ago that got worse yesterday and today. Plan for cardiac workup. Denies shortness of breath. Patient reports that since happened many years ago and ?they found fluid around my heart that needed to be drained. ? Reevaluation(s) Reevaluation #1: 64-year-old male with chest pain, calculated HEART score is 3, chest x-ray is not suggesting pericardial effusion, no risk for DVT or PE. Will reassure have the patient follow-up with Dr. Buenrostro as an outpatient for further evaluation and possible outpatient stress test. Time: 19:25 Medical Decision Making Differential Diagnosis Differential Diagnoses: The differential diagnosis associated with the presentation includes ( ACS, pleural effusion, pericardial effusion, pneumothorax, electrolyte derangement, severe anemia, hypoxia.) Admission/Observation Consideration of admission/observation: Escalation of care including admission/observation considered Lab Data MDM Lab Attestation statement: I reviewed the patient's lab results. 02/24/24 13:53 02/24/24 17:50 Labs: Lab Results 02/24/24 02/24/24 Range/Units 13:53 17:50 WBC 6.4 (4.8-10.8) X10*3/uL RBC 4.23 L (4.60-5.80) X10*6/uL Hgb 12.9 L (14.0-18.0) g/dl Hct 37.7 L (42.0-52.0) % MCV 89.1 (80.0-98.0) fL MCH 30.5 (27.0-33.0) pg MCHC 34.2 (31.0-36.0) g/dl RDW 12.8 (11.0-16.0) % Plt Count 277 D (160-400) X10*3/uL MPV 9.0 L (9.4-12.4) fL Immature Gran % (Auto) 0.5 H (0.0-0.4) % Neut % (Auto) 56.1 (45-73) % Lymph % (Auto) 29.6 (20-40) % [place] % (Auto) 9.4 (2-11) % Eos % (Auto) 4.1 H (0-4) % Baso % (Auto) 0.3 (0-2) % Lymph # (Auto) 1.9 (1.2-4.9) X10*3/uL [place] # (Auto) 0.6 (0.1-1.2) X10*3/uL Eos # (Auto) 0.3 (0.0-0.4) X10*3/uL Baso # (Auto) 0.0 (0.0-0.2) X10*3/uL Abs Immat Gran (auto) 0.03 (0.00-0.03) X10*3/uL Absolute Neuts (auto) 3.6 (2.0-8.3) x10*3/uL Absolute Nucleated RBC 0.000 (0.0-0.012) X10*3/uL Nucleated RBC % (auto) 0.0 (0.0-0.2) /100WBC ESR 23 H (0-15) MM/HR Sodium 139 140 (135-145) mmol/L Potassium 5.4 H 4.7 (3.3-5.1) mmol/L Chloride 105 105 (96-108) mmol/L Carbon Dioxide 27 27 (22-29) mmol/L Anion Gap 12 13 (12-20) BUN 13 12 (9-16) mg/dL Creatinine 0.92 0.85 (0.5-1.4) mg/dL Estim Creat Clear Calc 52.0 56.2 Estimated GFR > 60 > 60 Random Glucose 109 103 (60-115) mg/dL Calcium 10.1 9.8 (8.4-10.2) mg/dL Troponin I High Sens < 2.7 < 2.7 (<3.5-35.0) ng/L C-Reactive Protein 0.43 (< or = 0.50) mg/dL B-Natriuretic Peptide 17 (<100) pg/mL Independent Interpretation I performed an independent interpretation of an: Plain X-Ray ( chest: No acute cardiopulmonary findings.) Radiology Impression Discussion of test interpretation with radiology: I have reviewed the radiologist's reading. Discharge Plan Discharge Clinical Impression: Atypical chest pain Patient Disposition: Home, Self-Care Instructions: Chest Pain (ED) Prescriptions: No Action buprenorphine-naloxone [Suboxone] 12-3 mg film 1 strip sublingual DAILY levothyroxine [Synthroid] 150 mcg tablet 150 mcg PO DAILY Qty: 90 0RF levothyroxine 125 mcg capsule 125 mcg PO DAILY Qty: 20 0RF erythromycin 5 mg/gram (0.5 %) ointment 1 appl ophthalmic (eye) TID 5 Days Qty: 3.5 0RF levothyroxine 125 mcg capsule 125 mcg PO DAILY Qty: 30 0RF amoxicillin-pot clavulanate 875-125 mg tablet 1 tab PO BID 7 Days Qty: 14 0RF Referrals: Hair Buenrostro MD [Physician] - Print Language: [place]
[2024-02-24 14:00] LABS: Basophils Percent Auto 0.3 % (0-2); Eosinophils Absolute Auto 0.3 X10*3/uL (0.0-0.4); Eosinophils Percent Auto 4.1 % (0-4); Hematocrit 37.7 % (42.0-52.0); Hemoglobin 12.9 g/dl (14.0-18.0); Imm Gran Abs Auto 0.03 X10*3/uL (0.00-0.03); Imm Gran Pct Auto 0.5 % (0.0-0.4); Lymphocytes Absolute Auto 1.9 X10*3/uL (1.2-4.9); Lymphocytes Percent Auto 29.6 % (20-40); MANUAL DIFF FLAG NO; Mean Corpuscular HGB Conc 34.2 g/dl (31.0-36.0); Mean Corpuscular Hemoglobin 30.5 pg (27.0-33.0); Mean Corpuscular Volume 89.1 fL (80.0-98.0); Monocytes Absolute Auto 0.6 X10*3/uL (0.1-1.2); Monocytes Percent Auto 9.4 % (2-11); Neutrophils Absolute Auto 3.6 x10*3/uL (2.0-8.3); Neutrophils Percent Auto 56.1 % (45-73); Platelet Count 277 X10*3/uL (160-400); Red Blood Count 4.23 X10*6/uL (4.60-5.80); Red Cell Distribution Width 12.8 % (11.0-16.0); White Blood Count 6.4 X10*3/uL (4.8-10.8)
[2024-02-24 14:12] LABS: C Reactive Protein 0.43 mg/dL (< or = 0.50)
[2024-02-24 14:13] LABS: Anion Gap 12 (12-20); Blood Urea Nitrogen 13 mg/dL (9-16); Calcium 10.1 mg/dL (8.4-10.2); Carbon Dioxide 27 mmol/L (22-29); Chloride 105 mmol/L (96-108); Estimated Glomerular Filt Rate > 60; Glucose Random 109 mg/dL (60-115); Potassium 5.4 mmol/L (3.3-5.1); Sodium 139 mmol/L (135-145)
[2024-02-24 14:20] LABS: B Type Natriuretic Peptide 17 pg/mL (<100)
[2024-02-24 14:22] LABS: Troponin-I High Sensitivity < 2.7 ng/L (<3.5-35.0)
[2024-02-24 14:40] LABS: Erythrocyte Sedimentation Rate 23 MM/HR (0-15)
[2024-02-24 17:34] VITALS: PULSE 55
[2024-02-24 18:10] LABS: Anion Gap 13 (12-20); Blood Urea Nitrogen 12 mg/dL (9-16); Calcium 9.8 mg/dL (8.4-10.2); Carbon Dioxide 27 mmol/L (22-29); Chloride 105 mmol/L (96-108); Creatinine Clr Calc Pharmacy 56.2; Estimated Glomerular Filt Rate > 60; Glucose Random 103 mg/dL (60-115); Potassium 4.7 mmol/L (3.3-5.1); Sodium 140 mmol/L (135-145)
[2024-02-24 18:19] LABS: Troponin-I High Sensitivity < 2.7 ng/L (<3.5-35.0)
[2024-02-24 20:16] VITALS: BP 138/82; PULSE 74; RESP 18; TEMP 36.6; O2SAT 98
== END 2024-02-24 20:17 | disposition home or self-care (01) ==
PROVIDERS: Physician Assistant; Emergency Provider Emergency Medicine
DX: R07.89 Other chest pain (principal); F11.20 Opioid dependence, uncomplicated; Z79.899 Other long term (current) drug therapy
CPT/HCPCS: 36415; 71046; 80048; 83880; 84484; 85025; 85652; 86140; 93005; 99283; 99285

== ENCOUNTER → 2024-02-24 12:36 | Outpatient (BNV) | payer MEDICAID, SELFPAY | PROVIDERS: Emergency Provider Emergency Medicine; Visit Provider Internal Medicine | DX: R00.1 Bradycardia, unspecified (principal) | CPT/HCPCS: 93010 ==

== ENCOUNTER 2024-05-14 22:36 | Emergency (ER) | payer MEDICAID, SELFPAY ==
[2024-05-14 22:57] VITALS: BP 126/78; PULSE 62; RESP 14; TEMP 36.4; O2SAT 98; BMI 33.6
[2024-05-14 23:28] LABS: MANUAL DIFF FLAG NO
[2024-05-14 23:29] LABS: Basophils Percent Auto 0.4 % (0-2); Eosinophils Absolute Auto 0.3 X10*3/uL (0.0-0.4); Eosinophils Percent Auto 4.4 % (0-4); Hematocrit 34.7 % (42.0-52.0); Hemoglobin 11.9 g/dl (14.0-18.0); Imm Gran Abs Auto 0.03 X10*3/uL (0.00-0.03); Imm Gran Pct Auto 0.4 % (0.0-0.4); Lymphocytes Percent Auto 43.4 % (20-40); Mean Corpuscular HGB Conc 34.3 g/dl (31.0-36.0); Mean Corpuscular Hemoglobin 29.8 pg (27.0-33.0); Mean Platelet Volume 9.3 fL (9.4-12.4); Monocytes Absolute Auto 0.5 X10*3/uL (0.1-1.2); Monocytes Percent Auto 7.2 % (2-11); Neutrophils Percent Auto 44.2 % (45-73); Platelet Count 187 X10*3/uL (160-400); Red Blood Count 3.99 X10*6/uL (4.60-5.80); Red Cell Distribution Width 13.1 % (11.0-16.0); White Blood Count 6.8 X10*3/uL (4.8-10.8)
--- NOTE | 2024-05-14 23:38 | ED_ITS ---
HPI - General Adult General Chief complaint: General Medical Stated complaint: Medication refill-Thyroid Time Seen by Provider: 05/14/24 23:12 Source: patient Mode of arrival: ambulatory Limitations: no limitations History of Present Illness ED Provider: LOGAN DUNLAP narrative: 64 yo male with PMH of anemia, hypothyroidism off of his medications levothyroxine 150mcg daily for 2 months not able to get PCP and missed appointment. He feels tired and sluggish. His hands feel tight and swollen. No other complaints, hoping to get refill of his thyroid med here. complaint: med refill Onset (ago): month(s) (2) Severity: mild Relieving factors: none Exacerbating factors: none Associated symptoms: other (fatigue) Related Data Home Medications ?Medication ?Instructions ?Recorded ?Confirmed buprenorphine 12 mg-naloxone 3 mg 1 strip sublingual DAILY 11/29/22 11/29/22 sublingual film (Suboxone) Previous Rx's ?Medication ?Instructions ?Recorded levothyroxine 150 mcg tablet 150 mcg PO DAILY #90 tabs 11/29/22 (Synthroid) levothyroxine 125 mcg capsule 125 mcg PO DAILY #20 caps 10/19/23 amoxicillin 875 mg-potassium 1 tab PO BID 7 days #14 tabs 01/14/24 clavulanate 125 mg tablet erythromycin 5 mg/gram (0.5 %) eye 1 appl ophthalmic (eye) TID 5 days 01/14/24 ointment #3.5 grams levothyroxine 125 mcg capsule 125 mcg PO DAILY #30 caps 01/14/24 levothyroxine 50 mcg capsule 50 mcg PO DAILY #30 caps 05/15/24 Allergies Allergy/AdvReac Type Severity Reaction Status Date / Time No Known Allergies Allergy Verified 05/14/24 22:59 [No Known Allergies*] Review of Systems 2 Review of Systems: Constitutional : No Fever, No Chills, pos Fatigue ENT/Mouth : No sore throat, No Rhinorrhea Eyes: No Eye Pain, No Swelling, No Redness Cardiovascular : No Chest Pain, No SOB, No Dyspnea on Exertion Respiratory : No Cough, No Sputum Gastrointestinal : No Nausea, No Vomiting, No Diarrhea, No abdominal Pain Genitourinary : No Dysuria, No Urinary Frequency, No Hematuria, Musculoskeletal : No joint pain, No Myalgias, No Joint Swelling Skin : No Skin Lesions, No rash Neuro : No Weakness, No Numbness, No Dizziness, no Headache All other systems reviewed and are negative [facility] Past Medical History Attestation statement: The following information was validated with the patient. Source: old records reviewed Medical History Hypothyroid Social History Social History Substance Use Type: Opiates Advance Directives: No Advance Directives Information Provided: No Do you have a plan to hurt others: No Plan Physical Exam ED Vital Signs: Vital Signs - 24 hr 05/14/24 22:57 05/15/24 00:00 Temperature 97.5 F 98.3 F Pulse Rate 62 57 Respiratory Rate 14 18 Blood Pressure 126/78 112/68 Pulse Oximetry 98 96 Oxygen Delivery Method Room Air Room Air BMI result Body Mass Index 33.6 Appearance: Alert. Oriented X3. No acute distress. Eyes: Pupils equal, round and reactive to light. ENT: Pharynx normal. Neck: Normal inspection. Neck supple. CVS: Normal heart rate and rhythm. Pulses normal. Respiratory: No respiratory distress. Breath sounds normal. Abdomen: Soft and nontender. Skin: Skin warm and dry. Normal skin color. Normal skin turgor. Extremities: No lower extremity edema. No calf ttp Neuro: Oriented X 3. No motor deficit. No sensory deficit. Medical Decision Making Medical Decision Making [facility] Narrative: 64 yo male with PMH of hypothyroidism and opiate use here with c/o fatigue in setting of not taking his thyroid medications off of his meds x 2 months at this time will need labs and start on 50mcg daily and refer to PCP. Differential Diagnosis Differential Diagnoses: The differential diagnosis associated with the presentation includes hypotnyroidism, non compliance Admission/Observation Consideration of admission/observation: Escalation of care including admission/observation considered no signs of myxedema coma stable for DC Lab Data [facility] Lab Attestation statement: I reviewed the patient's lab results. 05/14/24 23:22 05/14/24 23:22 Labs: Lab Results 05/14/24 Range/Units 23:22 WBC 6.8 (4.8-10.8) X10*3/uL RBC 3.99 L (4.60-5.80) X10*6/uL Hgb 11.9 L (14.0-18.0) g/dl Hct 34.7 L (42.0-52.0) % MCV 87.0 (80.0-98.0) fL MCH 29.8 (27.0-33.0) pg MCHC 34.3 (31.0-36.0) g/dl RDW 13.1 (11.0-16.0) % Plt Count 187 D (160-400) X10*3/uL MPV 9.3 L (9.4-12.4) fL Immature Gran % (Auto) 0.4 (0.0-0.4) % Neut % (Auto) 44.2 L (45-73) % Lymph % (Auto) 43.4 H (20-40) % [place] % (Auto) 7.2 (2-11) % Eos % (Auto) 4.4 H (0-4) % Baso % (Auto) 0.4 (0-2) % Lymph # (Auto) 3.0 (1.2-4.9) X10*3/uL [place] # (Auto) 0.5 (0.1-1.2) X10*3/uL Eos # (Auto) 0.3 (0.0-0.4) X10*3/uL Baso # (Auto) 0.0 (0.0-0.2) X10*3/uL Abs Immat Gran (auto) 0.03 (0.00-0.03) X10*3/uL Absolute Neuts (auto) 3.0 (2.0-8.3) x10*3/uL Absolute Nucleated RBC 0.000 (0.0-0.012) X10*3/uL Nucleated RBC % (auto) 0.0 (0.0-0.2) /100WBC Sodium 142 (135-145) mmol/L Potassium 4.7 (3.3-5.1) mmol/L Chloride 105 (96-108) mmol/L Carbon Dioxide 30 H (22-29) mmol/L Anion Gap 12 (12-20) BUN 20 H (9-16) mg/dL Creatinine 1.22 (0.5-1.4) mg/dL Estim Creat Clear Calc 50.1 Estimated GFR > 60 Random Glucose 106 (60-115) mg/dL Calcium 10.2 (8.4-10.2) mg/dL Total Bilirubin 0.5 (0.0-1.0) mg/dL AST 45 H (5-37) U/L ALT 27 (0-40) U/L Alkaline Phosphatase 62 (39-117) U/L Total Protein 7.4 (6.5-8.0) g/dL Albumin 4.6 (3.5-5.0) g/dL TSH 74.15 H (0.32-4.0) uIU/mL Free T4 < 0.42 L (0.71-1.85) ng/dL External Record Review External record reviewed: Office record Prescription Management I considered prescription management with: Other Discharge Plan Discharge Clinical Impression: Hypothyroidism Qualifiers: Hypothyroidism type: unspecified Qualified Code(s): E03.9 - Hypothyroidism, unspecified Patient Disposition: Home, Self-Care Instructions: Hypothyroidism (ED) Additional Instructions: mild chronic anemia make sure you follow up with your doctor your thyroid med needs to be titrated up based off labs over the next month would slowly increase back up to 150 would recommend repeat TSH in 2 weeks with treatment Prescriptions: New levothyroxine 50 mcg capsule 50 mcg PO DAILY Qty: 30 1RF No Action buprenorphine-naloxone [Suboxone] 12-3 mg film 1 strip sublingual DAILY levothyroxine [Synthroid] 150 mcg tablet 150 mcg PO DAILY Qty: 90 0RF levothyroxine 125 mcg capsule 125 mcg PO DAILY Qty: 20 0RF erythromycin 5 mg/gram (0.5 %) ointment 1 appl ophthalmic (eye) TID 5 Days Qty: 3.5 0RF levothyroxine 125 mcg capsule 125 mcg PO DAILY Qty: 30 0RF amoxicillin-pot clavulanate 875-125 mg tablet 1 tab PO BID 7 Days Qty: 14 0RF Print Language: Swazi
[2024-05-14 23:50] LABS: Alanine Aminotransferase 27 U/L (0-40); Albumin Level 4.6 g/dL (3.5-5.0); Alkaline Phosphatase 62 U/L (39-117); Anion Gap 12 (12-20); Aspartate Amino Transferase 45 U/L (5-37); Bilirubin Total 0.5 mg/dL (0.0-1.0); Blood Urea Nitrogen 20 mg/dL (9-16); Calcium 10.2 mg/dL (8.4-10.2); Carbon Dioxide 30 mmol/L (22-29); Chloride 105 mmol/L (96-108); Creatinine Clr Calc Pharmacy 50.1; Estimated Glomerular Filt Rate > 60; Glucose Random 106 mg/dL (60-115); Potassium 4.7 mmol/L (3.3-5.1); Sodium 142 mmol/L (135-145); Total Protein 7.4 g/dL (6.5-8.0)
[2024-05-15] VITALS: BP 112/68; PULSE 57; RESP 18; TEMP 36.8; O2SAT 96
[2024-05-15 00:07] LABS: Free T4 (Free Thyroxine) < 0.42 ng/dL (0.71-1.85); Thyroid Stimulating Hormone 74.15 uIU/mL (0.32-4.0)
[2024-05-15 00:30] VITALS: BP 112/68; PULSE 57; RESP 18; TEMP 36.8; O2SAT 96
== END 2024-05-15 01:16 | disposition home or self-care (01) ==
PROVIDERS: Emergency Provider Emergency Medicine
DX: E03.9 Hypothyroidism, unspecified (principal); R53.83 Other fatigue; F11.20 Opioid dependence, uncomplicated; Z79.899 Other long term (current) drug therapy
CPT/HCPCS: 36415; 80053; 84439; 84443; 85025; 99283

== ENCOUNTER 2024-09-18 18:32 | Emergency (ER) | payer MEDICAID, SELFPAY ==
[2024-09-18 18:35] VITALS: BP 127/76; PULSE 68; RESP 16; TEMP 36.4; O2SAT 96; BMI 31.3
--- NOTE | 2024-09-18 18:36 | ED_ITS ---
HPI - General Adult General Stated complaint: Rx refill needed Time Seen by Provider: 09/18/24 18:37 Source: patient Mode of arrival: ambulatory Limitations: no limitations History of Present Illness ED Provider: Mery Madrigal APRN HPI narrative: 64 yo male with history of hypothyroidism off his meds for >1 month d/t lack of PCP here seeking refill for his levothyroxine. He was here in April 2024 for same and discharged with a 30 day supply of 50mcg. He has not followed up with a PCP as he works nights and it is hard for him to be seen during day hours as he is sleeping. No physical complaints. Related Data Home Medications ?Medication ?Instructions ?Recorded ?Confirmed buprenorphine 12 mg-naloxone 3 mg 1 strip sublingual DAILY 11/29/22 11/29/22 sublingual film (Suboxone) Previous Rx's ?Medication ?Instructions ?Recorded levothyroxine 150 mcg tablet 150 mcg PO DAILY #90 tabs 11/29/22 (Synthroid) levothyroxine 125 mcg capsule 125 mcg PO DAILY #20 caps 10/19/23 amoxicillin 875 mg-potassium 1 tab PO BID 7 days #14 tabs 01/14/24 clavulanate 125 mg tablet erythromycin 5 mg/gram (0.5 %) eye 1 appl ophthalmic (eye) TID 5 days 01/14/24 ointment #3.5 grams levothyroxine 125 mcg capsule 125 mcg PO DAILY #30 caps 01/14/24 levothyroxine 50 mcg capsule 50 mcg PO DAILY #30 caps 05/15/24 levothyroxine 50 mcg capsule 50 mcg PO DAILY #30 caps 09/18/24 Allergies Allergy/AdvReac Type Severity Reaction Status Date / Time No Known Allergies Allergy Verified 09/18/24 18:37 [No Known Allergies*] Review of Systems Review of Systems: Yes all other systems are reviewed and are negative Constitutional: Constitutional: Reports no additional constitutional complaints, Denies body ache(s), Denies chills, Denies fever(s), Denies headache(s) and Denies weakness Eyes: Eyes: Reports no additional eye complaints and Denies change in vision ENT: Reports system reviewed and no additional complaints, except as documented, Denies dizziness, Denies headache(s), Denies nasal congestion, Denies nasal discharge and Denies neck pain Cardiovascular: Cardiovascular: Reports no additional cardiovascular complaints, Denies chest pain, Denies leg edema and Denies dyspnea Respiratory: Respiratory: Reports no additional respiratory complaints, Denies cough and Denies dyspnea Gastrointestinal: Gastrointestinal: Reports no additional gastrointestinal complaints, Denies abdominal pain, Denies diarrhea, Denies nausea and Denies vomiting Genitourinary: Genitourinary: Denies urinary incontinence Musculoskeletal: Musculoskeletal: Reports no additional musculoskeletal complaints, Denies back pain, Denies arthralgias, Denies joint swelling, Denies neck pain, Denies numbness and Denies tingling Integumentary/Breasts: Skin/Breast: Reports system reviewed and no additional complaints, except as docu and Denies rash Neurologic: Reports system reviewed and no additional complaints, except as documented, Denies Abnormal speech present, Denies dizziness, Denies headache(s), Denies numbness, Denies tingling and Denies weakness PMFSH Past Medical History Attestation statement: The following information was validated with the patient. Source: old records reviewed and nursing notes reviewed Medical History Hypothyroid Social History Social History Substance Use Type: Opiates Physical Exam ED Const General: cooperative, healthy appearing, comfortable and no acute distress Orientation/consciousness: patient oriented x3 Limitations: no limitations HENMT Head: Yes normal to inspection Ears: hearing grossly normal bilaterally General nose exam: Normal external nose present Face and sinus: Yes normal facial exam Mouth: Normal oral and palatal mucosa present Throat: Yes posterior oropharynx normal Eyes General: appearance normal, both eyes and all related structures Pupils: Equal, round and reactive pupils present Neck Neck: Yes normal visual inspection Chest Chest palpation & inspection: normal inspection of the chest Resp Effort & Inspection: normal respiratory effort Auscultation: clear to auscultation bilaterally Cardio Rate: regular rate Rhythm: regular rhythm Peripheral pulses: Peripheral pulses 2+ throughout GI Inspection: Yes normal to inspection Palpation (GI): Soft to palpation and nontender Auscultation: normal bowel sounds Back/Spine/Pelvis Thoracic/Lumbar Spine: thoracic and lumbar spine normal to inspection Skin General skin exam: no rashes or lesions noted Neuro General: patient oriented x3, no focal motor deficits and normal sensation to monofilament Cranial nerves: Yes Equal, round and reactive pupils present Cognition (Neuro): normal cognition Speech: No Abnormal speech present Gait exam (Neuro): Normal gait present Motor exam (neuro): 5/5 motor strength present throughout Extrem General: Yes normal to inspection Medical Decision Making Medical Decision Making MDM Narrative: 64 yo male with history of hypothyroidism off his meds for >1 month d/t lack of PCP here seeking refill for his levothyroxine. He was here in April 2024 for same and discharged with a 30 day supply of 50mcg. He has not followed up with a PCP as he works nights and it is hard for him to be seen during day hours as he is sleeping. No physical complaints. VSS NO s/s myxedema. Exam is benign. Reinforced need to get a PCP. Will give #30 of levothyroxine Differential Diagnosis Differential Diagnoses: The differential diagnosis associated with the presentation includes Medicine refill Admission/Observation Consideration of admission/observation: Escalation of care including admission/observation considered see above Chronic Conditions Patient?s care impacted by: Other (hypothyroidism) Social Determinants Patient?s care significantly limited by Social Determinants of Health including: Problems related to primary support group Discharge Plan Discharge Clinical Impression: Medication refill Patient Disposition: Home, Self-Care Instructions: Medicine Refill (ED) Prescriptions: New levothyroxine 50 mcg capsule 50 mcg PO DAILY Qty: 30 0RF No Action buprenorphine-naloxone [Suboxone] 12-3 mg film 1 strip sublingual DAILY levothyroxine [Synthroid] 150 mcg tablet 150 mcg PO DAILY Qty: 90 0RF levothyroxine 125 mcg capsule 125 mcg PO DAILY Qty: 20 0RF erythromycin 5 mg/gram (0.5 %) ointment 1 appl ophthalmic (eye) TID 5 Days Qty: 3.5 0RF levothyroxine 125 mcg capsule 125 mcg PO DAILY Qty: 30 0RF amoxicillin-pot clavulanate 875-125 mg tablet 1 tab PO BID 7 Days Qty: 14 0RF levothyroxine 50 mcg capsule 50 mcg PO DAILY Qty: 30 1RF Print Language: Vietnamese
[2024-09-18 18:40] VITALS: BP 127/76; PULSE 68; RESP 16; TEMP 36.4; O2SAT 96
== END 2024-09-18 18:46 | disposition home or self-care (01) ==
LOC: HO.ED 18:41
PROVIDERS: Emergency Provider Internal Medicine
DX: Z76.0 Encounter for issue of repeat prescription (principal); Z79.899 Other long term (current) drug therapy
CPT/HCPCS: 99282

== ENCOUNTER 2025-01-21 19:54 | Emergency (ER) | payer MEDICAID, SELFPAY ==
--- NOTE | 2025-01-21 19:57 | ED.GENADULT ---
HPI - General Adult General Chief complaint: General Medical Stated complaint: medication refill Time Seen by Provider: 01/21/25 20:05 Source: patient Limitations: no limitations History of Present Illness HPI narrative: 64-year-old male who has a history of hypothyroidism, opioid use disorder on Suboxone, presents requesting refill of his levothyroxine 125 mcg. Patient states that he has been having difficulty with obtaining a PCP due to his insurance as well as his work schedule. Patient states he had been compliant with his medication but has been off of it for nearly 1 month. Currently the patient has no physical complaints. He states that he is in the process of waiting for a PCP appointment at the [facility] in [place]. Patient states it is insurance is now active once again. He has had multiple visits for the same medication refill. Related Data Home Medications ?Medication ?Instructions ?Recorded ?Confirmed buprenorphine 12 mg-naloxone 3 mg 1 strip sublingual DAILY 11/29/22 11/29/22 sublingual film (Suboxone) Previous Rx's ?Medication ?Instructions ?Recorded levothyroxine 125 mcg capsule 125 mcg PO DAILY #30 caps 01/21/25 Allergies Allergy/AdvReac Type Severity Reaction Status Date / Time No Known Allergies Allergy Verified 01/21/25 20:00 [No Known Allergies*] Review of Systems Review of Systems: Yes all other systems are reviewed and are negative PMFSH Past Medical History Medical History Hypothyroid Social History Social History Alcohol intake: never Smoked in Last 30 Days: No Use of substances other than those prescribed or required for medical reasons: No Substance Use Type: Opiates Advance Directives: No Advance Directives Information Provided: No Do you have a plan to hurt others: No Plan Physical Exam ED Vital Signs: Vital Signs - 24 hr 01/21/25 19:58 01/21/25 20:23 Temperature 99.5 F 99.5 F Pulse Rate 67 67 Respiratory Rate 16 16 Blood Pressure 146/85 H 146/85 H Pulse Oximetry 97 97 Oxygen Delivery Method Room Air Room Air BMI result Body Mass Index 34.3 Const General: cooperative Resp Auscultation: clear to auscultation bilaterally Cardio Rate: regular rate Rhythm: regular rhythm Psych Speech and movement: Normal speech and movement present Medical Decision Making Medical Decision Making MDM Narrative: 64-year-old male with a history of hypothyroidism requesting medication refill. I have had extensive discussion with the patient regarding the importance of proper follow-up. I have provided additional PCP referral. Additional refill of his levothyroxine provided. Patient expresses understanding of all discharge instructions and has no further questions at this time. Differential Diagnosis Differential Diagnoses: The differential diagnosis associated with the presentation includes Hypothyroidism Medication refill Opiate use disorder Discharge Plan Discharge Clinical Impression: Encounter for medication refill Hypothyroidism Qualifiers: Hypothyroidism type: unspecified Qualified Code(s): E03.9 - Hypothyroidism, unspecified Patient Disposition: Home, Self-Care Instructions: Hypothyroidism (ED) Additional Instructions: As discussed, resume your thyroid medication as directed. Levothyroxine as directed. It is extremely important that you follow up with your primary care provider. We have also provided a referral. Call 1st thursday morning to schedule a follow up appointment. Follow-up with your primary care provider. Call this week to schedule a follow-up appointment. Return to the emergency department if you have any worsening of symptoms, or any concerns. Get well soon! Prescriptions: New levothyroxine 125 mcg capsule 125 mcg PO DAILY Qty: 30 0RF Continued buprenorphine-naloxone [Suboxone] 12-3 mg film 1 strip sublingual DAILY Discontinued levothyroxine [Synthroid] 150 mcg tablet 150 mcg PO DAILY Qty: 90 0RF levothyroxine 125 mcg capsule 125 mcg PO DAILY Qty: 20 0RF erythromycin 5 mg/gram (0.5 %) ointment 1 appl ophthalmic (eye) TID 5 Days Qty: 3.5 0RF levothyroxine 125 mcg capsule 125 mcg PO DAILY Qty: 30 0RF amoxicillin-pot clavulanate 875-125 mg tablet 1 tab PO BID 7 Days Qty: 14 0RF levothyroxine 50 mcg capsule 50 mcg PO DAILY Qty: 30 1RF levothyroxine 50 mcg capsule 50 mcg PO DAILY Qty: 30 0RF Referrals: Sherly Stallworth MD [Physician] - 2 weeks (needs pcp, thyroid mgt) Interventions: ED Discharge Assessment Last Done: 01/21/25 20:23 Discharge Date/Time: 01/21/25 20:24 Print Language: Georgian
[2025-01-21 19:58] VITALS: BP 146/85; PULSE 67; RESP 16; TEMP 37.5; O2SAT 97; BMI 34.3
[2025-01-21 20:23] VITALS: BP 146/85; PULSE 67; RESP 16; TEMP 37.5; O2SAT 97
== END 2025-01-21 20:24 | disposition home or self-care (01) ==
PROVIDERS: Emergency Provider Emergency Medicine
DX: E03.9 Hypothyroidism, unspecified (principal); Z76.0 Encounter for issue of repeat prescription
CPT/HCPCS: 99282; 99284